=== PATIENT | male | born 1985 | race American Indian/Alaskan Native ===

== ENCOUNTER 2024-01-08 12:09 | Emergency (ER) | payer OTHER ==
[~2024-01-08] VITALS: Ht 170.2 cm; Wt 99.8 kg
[2024-01-08] MEDS ORDERED: BACTRIM DS TAB1 EAC1 PO (12:30)
[2024-01-08] MEDS ORDERED: CEPHALEXIN500 M1 PO (12:30)
== END 2024-01-08 12:38 | disposition home or self-care (01) ==
LOC: ER 12:09
DX: L03.116 Cellulitis of left lower limb (principal); L03.115 Cellulitis of right lower limb
CPT/HCPCS: 99282